=== PATIENT | male | born 1960 | race Hispanic/Latino ===

== ENCOUNTER → 2025-05-28 16:18 | Outpatient (CLI) | payer SELFPAY ==
[2025-05-29 20:04] LABS: Microalbumi Creatinin Ratio Ur 58.0 ug/mg CR (<30)
== END ==
PROVIDERS: Visit Provider Physician Assistant
DX: E11.9 Type 2 diabetes mellitus without complications (principal); Z12.11 Encounter for screening for malignant neoplasm of colon; R97.20 Elevated prostate specific antigen [PSA]
CPT/HCPCS: 82043; 82570

== ENCOUNTER → 2025-07-09 13:26 | Outpatient (CLI) | payer SELFPAY ==
[2025-07-09 19:29] LABS: Hemoglobin A1C% w Est Avg Glu 8.1 % (4.0-6.0)
[2025-07-09 19:30] LABS: Alanine Aminotransferase 18 IU/L (<50); Albumin 4.4 g/dL (3.5-5.0); Albumin Globulin Ratio 1.4 (1.0-2.8); Alkaline Phosphatase 98 U/L (38-126); Blood Urea Nitrogen 13 mg/dL (9-20); Calcium 9.5 mg/dL (8.4-10.2); Carbon Dioxide 29 mmol/L (22-32); Chloride 96 mmol/L (98-107); Estimated Glomerular Filt Rate > 60 mL/min (>60); Globulin 3.2 g/dL (1.7-4.1); Glucose 275 mg/dL (70-99); HEMOLYSIS 29 (0-50); Potassium 4.8 mmol/L (3.4-5.1); Sodium 135 mmol/L (137-145); Total Protein 7.6 g/dL (6.3-8.2)
[2025-07-09 19:44] LABS: Microalbumi Creatinin Ratio Ur 87.0 ug/mg CR (<30)
[2025-07-09 19:58] LABS: Prostate Specific Antigen 5.97 ng/mL (0.10-4.00)
== END ==
PROVIDERS: PCP Physician Assistant; Visit Provider Physician Assistant
DX: R97.20 Elevated prostate specific antigen [PSA] (principal); E11.9 Type 2 diabetes mellitus without complications; Z79.899 Other long term (current) drug therapy; R82.90 Unspecified abnormal findings in urine
CPT/HCPCS: 80053; 82043; 82570; 83036; 84153